=== PATIENT | female | born 1955 | race Caucasian/White ===

== ENCOUNTER 2020-07-27 08:41 | Inpatient (IN) ==
[~2020-07-27 08:41] MED LIST: MORPHINE SULFATE 15 MG TABLET.SA PO PRN; ROPIVACAINE HCL/PF 100 MG, EPINEPHrine 0.2 MG, KETOROLAC TROMETHAMINE 30 MG in NORMAL S... IJ PRN; TRANEXAMIC ACID 1,000 MG in NORMAL SALINE 100 ML IV PRN; ceFAZolin SODIUM 1 GM VIAL IV PRN
[2020-07-27] MEDS ORDERED: LIDOCAINE HCL 20 ML VIAL ONE (09:04)
[2020-07-27] MEDS ORDERED: fentaNYL CITRATE/PF 50 MCG/ML AMPUL ONE (09:05)
[2020-07-27] MEDS ORDERED: PROPOFOL VIAL IV ONE (09:05)
[2020-07-27] MEDS ORDERED: ONDANSETRON HCL/PF 2 MG/ML VIAL ONE (09:05)
[2020-07-27] MEDS ORDERED: ceFAZolin SODIUM 1 GM VIAL ONE (09:06)
[2020-07-27] MEDS ORDERED: ISOPROPYL ALCOHOL 480 APPL BTL MC ONE (09:06)
[2020-07-27] MEDS: RINGER'S SOLUTION,LACTATED 1,000 ML IV PRN ×3 (09:12→11:45)
--- NOTE | 2020-07-27 09:30 | ANES ---
Anesthesia Pre Procedure Eval Vitals/Labs: Last Vital Signs Temp 37.6 C 07/27/20 08:45 Pulse 103 H 07/27/20 08:45 Resp 16 07/27/20 08:45 BP 131/88 07/27/20 08:45 Pulse Ox 98 07/27/20 08:45 HOME MEDICATIONS aspirin 81 mg tablet,delayed release 81 mg PO DAILY 05/29/19 [Last Taken 07/20/20 06:00] ProAir HFA 90 mcg/actuation aerosol inhaler 2 inh IH Q6H PRN #25.5 g NS 05/25/20 [Last Taken Unknown] hydrochlorothiazide 25 mg tablet 25 mg PO DAILY #90 tab 05/25/20 [Last Taken 07/27/20 06:15] ibuprofen 200 mg tablet 600 mg PO BID tab 05/25/20 [Last Taken Unknown] omeprazole 20 mg capsule,delayed release 20 mg PO BID #180 cap 05/25/20 [Last Taken 07/27/20 06:15] melatonin 5 mg capsule 5 mg PO HS PRN cap 06/19/20 [Last Taken Unknown] Allergies/Adverse Reactions: Allergies Allergy/AdvReac Type Severity Reaction Status Date / Time acetaminophen Allergy Severe Hives Verified 07/17/20 13:40 [From Darvocet-N 100] propoxyphene napsylate Allergy Severe Hives Verified 07/17/20 13:40 [From Darvocet-N 100] - Planned Procedure Planned Procedure: LT Arthroplasty Total Hip Medication List Reviewed:: Yes Allergies Verified: Yes Medical History (Last Reviewed 07/27/20 @ 09:28 by Faisal Kinney CRNA) COPD (chronic obstructive pulmonary disease) (Chronic) H/O gastroesophageal reflux (GERD) Hypertension Migraine occular Fracture of left hand Onset Date: ~11/23/12 Knee pain, right Surgical History (Last Reviewed 07/27/20 @ 09:28 by Faisal Kinney CRNA) H/O excision of ganglion cyst Onset Date: Unknown right knee History of appendectomy Onset Date: ~1965 open History of colonoscopy Onset Date: 06/11/18 Adrianan-tubular adenoma x2, serrated adenoma, tubulovillous adenoma, hyperplast ic polyp. Recheck 3 yrs. History of esophagogastroduodenoscopy (EGD) Onset Date: 06/11/18 Bagan-clotest negative, moderate benign reactive gastropathy/chemical gastritis, polypoid chidi's gland hyperplasia. History of tonsillectomy Onset Date: Unknown Hx of arthroscopic knee surgery Onset Date: Unknown right Family History (Last Reviewed 07/27/20 @ 09:28 by Faisal Kinney CRNA) Mother , age 84-COPD, CHF COPD (chronic obstructive pulmonary disease) Hypertension Heart disease CHF (congestive heart failure) Diabetes Father , age 84-Alzheimers Alzheimers disease Kidney tumor unknown if it was cancer (kidney removed) Brother Diabetes Hypertension Sister Hypertension Arthritis - Family Anesthesia History Family History:: no untoward family reactions to anesthesia, no familial bleeding tendencies, no family history of clotting disorders, no family history of premature - Airway/Neck/Teeth Within Normal Limits:: Yes Teeth Condition: intact Denture Type: Perm crown/bridge Mallampatti Score: 2 Thyromental (T-M) distance: > 6 cm Mandibulo Hyoid distance: > 3 cm - Respiratory Respiratory History: COPD Respiratory Physical: decreased breath sounds Smoking Status: Current every day smoker Discussed smoking cessation including day of surgery: Yes Sleep Apnea by current assessment: No - Cardiovascular Tolerate Activity: Fair Heart Sounds: S1 & S2, Regular - Gastrointestinal NPO since: mn - Anesthesia Assessment and Plan ASA Class: PS, II Anesthesia Type Plan: Spinal
[2020-07-27] MEDS ORDERED: DEXTROSE 5%-LACTATED RINGERS 1,000 ML IV PRN (11:26)
[2020-07-27] MEDS ORDERED: MORPHINE SULFATE 2 MG/ML DISP.SYRIN IV PRN (11:26)
[2020-07-27] MEDS ORDERED: diphenhydrAMINE HCL 50 MG/ML VIAL IV PRN (11:26)
[2020-07-27] MEDS ORDERED: ACETAMINOPHEN 500 MG TABLET PO PRN (11:26)
[2020-07-27] MEDS ORDERED: ONDANSETRON HCL/PF 2 MG/ML VIAL IV PRN (11:26)
[2020-07-27] MEDS ORDERED: MAG HYDROX/ALUMINUM HYD/SIMETH 30 ML UDC PO PRN (11:26)
[2020-07-27] MEDS ORDERED: MAGNESIUM HYDROXIDE 30 ML UDC PO PRN (11:26)
[2020-07-27] MEDS ORDERED: ZOLPIDEM TARTRATE 5 MG TABLET PO PRN (11:26)
--- NOTE | 2020-07-27 11:30 | OR ---
Operative Report - Dictated Report Narrative: Date: 07/27/2020 Preoperative diagnosis: Left hip degenerative joint disease. Postoperative diagnosis: Left hip degenerative joint disease. Procedure: Left total hip arthroplasty. Surgeon: Philipp Liao M.D. Water Pollution Specialist: Riley Baker PA-C (provided an essential set of skilled, educated and assisted with transfer, positioning, prepping, draping, manipulation, traction, irrigation, suturing, and placement of dressings all of which cannot be performed by the available surgical crew) Anesthesia: Spinal and local periarticular joint injection. Complications: None Specimens: Bone. Estimated blood loss: 100 milliliters. Retained implants: [employer] [place] size 4 femoral stem standard offset. Size 52 millimeter outside diameter 3-hole [place] Gription acetabular cup. 52 millimeter outside by 36 millimeter inside diameter highly cross-linked acetabular liner. 36 millimeter diameter + 5 millimeter ceramic femoral head. Cancellous 6.5mm screw 35 millimeter length Indications: Mrs. Lugo is a 65-year-old female who has had longstanding left hip pain and arthrosis. This patient was followed in my clinic for period of time with significant complaints of left hip pain consistent with arthritic changes. She failed conservative measures including but not limited to activity modification, passage of time, medications, and other conservative measures. Patient wished to proceed with surgical treatment. The risks, benefits, and alternatives were discussed in clinic. The risks of , blood clots, bleeding, infection, nerve/tendon blood vessel/ injury, malposition of components, dislocation and/or instability of joint, intraoperative fracture, postoperative limited range of motion, persistent pain, failure of components, and need for additional procedures. Patient wished to proceed. Consent was obtained after answering all questions. Procedure: After marking the correct extremity on the floor, the patient was taken to the operating room. A timeout was performed. IV antibiotics consisting of Ancef were administered prior to the procedure. A spinal anesthetic was induced by anesthesia. A Tran catheter was inserted. The patient was then transitioned to a lateral position on a well-padded pegboard. An axillary roll was placed. The head was in neutral position. The non- operative down leg was well-padded with SCD and CHINO hose in place. The arms were supported and padded to protect from any undue pressure on the bony prominences and nerves. A well-padded anterior and posterior pelvic and chest posts were secured in order to maintain a stable position of the pelvis. This was placed so that the pelvis was perpendicular to the floor. The body was in line with the pelvis. Once it was felt that we had protected all the bony prominences and the patient was well secured with a safety belt as well, the leg was pre-scrubbed with alcohol, prepped and draped in a standard sterile fashion. A standard anterior lateral hip incision was marked out over the greater trochanter. [place]an drapes were then placed. The skin incision was then made. Sharp dissection with a scalpel utilizing cautery for hemostasis was carried out down to the gluteus and iliotibial band fascia. This was split in line with the skin incision. The greater trochanter bursa was excised. The anterior and posterior margins of the abductor tendon were identified. The anterior 1/2-1/3 of the tendon was tagged and reflected off the greater trochanter leaving a sleeve of tendon for repair at the completion of the case. This exposed the underlying hip joint capsule. An inverted T-type capsulotomy was made extending this up to the brim of the acetabulum. Using Homans to assist with elevation of the soft tissues off the anterior, superior, and inferior aspects of the femoral neck, the hip was then placed in a figure 4 position and the femoral head was dislocated. With the leg in an externally rotated and adducted position, the cutting flag was utilized in order to jasmeet for a standard femoral neck cut approximately a fingerbreadth above the level of the lesser trochanter. This was done with reference to pre-operative films and overall alignment. This was done while protecting the surrounding soft tissues with Homans. The femoral head was then removed and sized for guidance on preparation of the acetabulum. It was noted that there was loss of articular cartilage on both the femoral head and weightbearing portions of the acetabulum. We then returned the leg to the table and turned our attention to the acetabulum. While protecting the surrounding soft tissues, the labrum and remaining tissue in the fovea were excised using a scalpel and cautery. A series of reamers up to size 52 millimeter were utilized to prepare the acetabulum. The final reamer had good purchase and exposed the bleeding subchondral bone. The acetabulum was then thoroughly irrigated ensuring that all bony and cartilaginous materials were removed, and the final acetabular shell was impacted into place. This was placed in approximately 45 degrees of abduction and 20 degrees of anteversion utilizing the outrigger and body axis for alignment. This had a good press fit. 1 6.5mm cancellous screw was placed in the superior posterior quadrant of the acetabulum. The shell was then thoroughly irrigated and the final polyethylene was impacted into place ensuring that it seated completely. This was then protected with a sponge while we returned our attention to the femur. With the leg in a figure 4 position, utilizing Homans for soft tissue protection, a box cutting osteotome, followed by Charsaadey awl, followed by serial reamers and broaches were utilized in order to prepare the femur. It was found that a size 4 broach gave good axial and rotational stability. The calcar reamer was utilized in order to clean up the cut edges. The proximal femur was visualized to ensure that there were no signs of fracture. A series of heads and necks were trialed. It was found that a standard offset neck and a + 5 femoral head gave good overall stability. There was minimal longitudinal instability. With the leg in the position of sleep, the femoral head was well covered. Hip range of motion was able to reach full extension and external rotation to greater than 75 degrees prior to impingement along the posterior acetabulum. The hip was able to be flexed to greater than 90 degrees with internal rotation greater than 60 degrees prior to anterior impingement. The limb lengths were near equal based on comparison to the contralateral side and the prior placed limb length stitch. At this point it was felt these were the appropriately sized femoral components as well as neck and femoral head. The trial implants were removed. The femur was thoroughly irrigated. The final implants were impacted into place, and the hip was reduced. After ensuring that there was no damage to the proximal femur, the standard periarticular joint injection of ropivacaine, Toradol, and epinephrine were injected into the joint capsule and surrounding soft tissues. Anesthesia then administered intravenous tranexamic acid. The capsule was repaired with a single interrupted #1 Vicryl. The abductor tendon was repaired to the greater trochanter utilizing #5 Ethibond through drill holes. This was oversewn with #1 Vicryl. The fascia was closed with interrupted #1 Vicryl and #0 Stratafix barbed suture. The wounds were thoroughly irrigated as we closed in layers. The deep and subcutaneous fat layers were closed with 0 and 3-0 Vicryl respectively. The subcutaneous tissue was closed with a running 3-0 Vicryl and the skin jose. All sponge, needle, blade, and instrument counts were correct prior to closing the wounds. Sterile dressings consisting of xeroform, 4 x 4's, and tape were applied. The patient was awoken and transferre d to her hospital bed and then to the postanesthesia care unit in stable condition. Postoperative condition: The plan is to admit to the medical/surgical inpatient floor postoperatively. There will be a projected 1 to 3 day hospital stay. Postoperatively 24 hours of IV antibiotics, pain control, physical therapy, occupational therapy, and medical comanagement will be utilized. Patient will be weightbearing as tolerated with anterior hip precautions. Postoperative films will be obtained in the recovery room.
--- NOTE | 2020-07-27 11:53 | ANES ---
Post Anesthesia Discharge - Transfer of Care Transfer of Care handoff given to nurse: Yes - Discharge from PACU Discharge from PACU when meets criteria: Yes - Discharge to ASU Discharge to ASU-no complications/pt stable: Yes
--- NOTE | 2020-07-27 11:58 | ANES ---
Post Anesthesia Assessment - Vital Signs Vitals: Last Vital Signs Temp 36.4 C 07/27/20 11:55 Pulse 73 07/27/20 11:55 Resp 18 07/27/20 11:55 BP 123/72 07/27/20 11:55 Pulse Ox 99 07/27/20 11:55 Airway Patency: Normal - Mental Status Level Of Consciousness: Awake - Pain Level Pain Score: 0 - N/V Assessment Nausea/Vomiting Presence: None Dehydration:: No
[2020-07-27] MEDS: ceFAZolin SODIUM 1 GM in DEXTROSE 5 % IN WATER 100 ML IV SCH ×4 (12:32→19:14)
[2020-07-27] MEDS: KETOROLAC TROMETHAMINE 15 MG/ML VIAL IV SCH ×3 (12:32→23:42)
[2020-07-27] MEDS: oxyCODONE HCL/ACETAMINOPHEN 1 TAB TABLET PO PRN (14:56)
[2020-07-27] MEDS ORDERED: SENNOSIDES/DOCUSATE SODIUM 1 TAB TABLET PO SCH (21:00)
[2020-07-27] MEDS ORDERED: OMEPRAZOLE 2 MG/ML BTL PO SCH (21:00)
[2020-07-27] MEDS: MORPHINE SULFATE 15 MG TABLET.SA PO SCH (21:00)
[2020-07-27] MEDS: PANTOPRAZOLE SODIUM 20 MG TABLET.DR PO SCH (21:00)
[2020-07-28] MEDS: ceFAZolin SODIUM 1 GM in DEXTROSE 5 % IN WATER 100 ML IV SCH ×2 (01:37)
[2020-07-28] MEDS: KETOROLAC TROMETHAMINE 15 MG/ML VIAL IV SCH ×2 (05:23→10:35)
[2020-07-28 06:58] LABS: Hematocrit 35.4 % (37.0-47.0); Hemoglobin 12.1 gm/dL (12.5-16.0); Mean Cell Volume 92.2 fl (78-100); Mean Corpuscular Hemoglobin 31.5 pg (27-31); Mean Corpuscular Hgb Conc 34.2 g/dl (32-36); Mean Platelet Volume 8.1 fl (8-12.5); Platelet Count 252 K/mm3 (150-450); Red Blood Count 3.84 M/mm3 (4.2-5.4); Red Cell Distribution Width 12.7 % (11.5-14.0)
[2020-07-28 07:04] LABS: Anion Gap 8.9 mmol/L (6.8-13.8); BUN/Creatinine Ratio 12.7 (9.0-21.6); Calcium * 8.9 mg/dL (7.9-10.9); Carbon Dioxide 28.9 mmol/L (24-32.6); Estimated Creat Clear 71.9; Potassium 3.8 mmol/L (3.4-4.6)
[2020-07-28] MEDS: PANTOPRAZOLE SODIUM 20 MG TABLET.DR PO SCH (07:52)
[2020-07-28] MEDS: oxyCODONE HCL/ACETAMINOPHEN 1 TAB TABLET PO PRN (08:07)
[2020-07-28] MEDS: MORPHINE SULFATE 15 MG TABLET.SA PO SCH (08:07)
--- NOTE | 2020-07-28 09:22 | DS ---
(1) Status post left hip replacement Problem: Acute (2) GERD (gastroesophageal reflux disease) Problem: Chronic Qualifiers: (3) Hypertension Problem: Chronic Qualifiers: (4) COPD (chronic obstructive pulmonary disease) Problem: Chronic Qualifiers: Date of Discharge:: 07/28/20 Hospital Course: Mrs. Lugo was admitted to the floor after undergoing left total hip arthroplasty. Tolerated this well. Was admitted to the floor postoperatively for 24 hours of IV antibiotics, pain control, medical comanagement, and occupational and physical therapy. OT and PT were consulted to assist with activities of daily living and ambulation. Was made weightbearing as tolerated with anterior hip precautions. Pain was initially controlled with IV regimen. This was transitioned to oral once tolerating a by mouth intake. Was resumed on home diet and medications. A Tran catheter was inserted in the operating room which was discontinued by postoperative day 1. Lovenox, SCDs, and CHINO hose were utilized for DVT prophylaxis. Vital signs remained stable to the hospital course. Labs were obtained which showed a final hemoglobin of 12.1 grams. Physical examination throughout the hospital course showed an extremity that had sensation that was intact to light touch, palpable pulses, a benign wound, motor intact to the toes, ankle, and knee. Once an oral pain regimen was tolerated and physical therapy goals were met, it was felt that they were stable for discharge to home. Instructions: Continue with weightbearing as tolerated and anterior hip precautions. Do not bathe or soak the wound. Keep the wound clean and dry and cover with dry gauze and tape. Change every 2-3 days as needed if there is any drainage. Cover woun d while showering. Continue with physical therapy. Resume home diet. Report any fever over 101.5 Fahrenheit, uncontrolled pain, increased drainage, foul odor of drainage, new or increased calf pain or shortness of breath, or any other significant complaints. A 325mg daily aspirin will be started after finishing anticoagulation if not allergic. Continue with CHINO hose on the operative extremity until instructed otherwise. No driving until instructed otherwise. Follow up in approximately 2-3 weeks. Procedures Performed: see notes below List Procedures: Left total hip arthroplasty Results and Findings: Lab Pending Results 07/28/20 06:54: WBC 7.0, RBC 3.84 L, Hgb 12.1 L, Hct 35.4 L, MCV 92.2, MCH 31.5 H, MCHC 34.2, RDW 12.7, Plt Count 252, MPV 8.1 07/28/20 06:54: Sodium 134, Plasma Sodium 134, Potassium 3.8, Chloride 100, Carbon Dioxide 28.9, Anion Gap 8.9, BUN 9, Creatinine 0.71, Est GFR (Non-Af Amer) 88, BUN/Creatinine Ratio 12.7, Random Glucose 108, Calcium 8.9 Disposition: Home self-care Condition: Good Discharge Activity: Weight bearing, Other - Anterior precautions Discharge Diet: General/regular food Referrals: Leigha Mayberry FNP [Primary Care Provider] - Prescriptions (Any new or edited meds): Enoxaparin Sodium [Lovenox] 40 mg SC Q24H #7 disp.syrin Transmission Status: Pending to [facility] Morphine Sulfate [Ms Contin] 15 mg PO Q12H #10 tablet. Transmission Status: Sent to [facility] oxyCODONE HCL/ACETAMINOPHEN [Percocet 5 MG/325 MG] 1 - 2 tab PO Q4H PRN #50 tab PRN Reason: Moderate Pain (Pain Scale 4-6) Transmission Status: Sent to [facility] Sennosides/Docusate Sodium [Senokot-S] 2 tab PO HS #60 tab Transmission Status: Pending to [facility] Complete Home Medications List: Complete Home Medication List: ProAir HFA 90 mcg/actuation aerosol inhaler 2 inh IH Q6H PRN #25.5 g NS 05/25/20 hydrochlorothiazide 25 mg tablet 25 mg PO DAILY #90 tab 05/25/20 ibuprofen 200 mg tablet 600 mg PO BID tab 05/25/20 omeprazole 20 mg capsule,delayed release 20 mg PO BID #180 cap 05/25/20 melatonin 5 mg capsule 5 mg PO HS PRN cap 06/19/20 Enoxaparin Sodium [Lovenox] 40 mg SC Q24H #7 disp.syrin 07/28/20 Morphine Sulfate [Ms Contin] 15 mg PO Q12H #10 tablet.sa 07/28/20 Sennosides/Docusate Sodium [Senokot-S] 2 tab PO HS #60 tab 07/28/20 oxyCODONE HCL/ACETAMINOPHEN [Percocet 5 MG/325 MG] 1 - 2 tab PO Q4H PRN #50 tab 07/28/20 Amb Orders for Discharge: PT Evaluation and Treatment* Facility: [facility], Location: Rehabilitation Services
[2020-07-28] MEDS ORDERED: ENOXAPARIN SODIUM 40 MG/0.4 ML SYRG SC SCH (10:27)
[2020-07-28 12:35] VITALS: BP 149/85
== END 2020-07-28 12:15 | disposition home or self-care (01) | DRG 470 ==
LOC: MS 08:41 → EDSTATUS 11:30
PROVIDERS: ADMIT Orthopaedic Surgery; ATTEND Orthopaedic Surgery
DX: M16.12 Unilateral primary osteoarthritis, left hip